=== PATIENT | male | born 1955 | race Caucasian/White ===

== ENCOUNTER 2016-05-22 18:57 | Observation (INO) | payer OTHER ==
[2016-05-22 19:03] VITALS: BMI 30.2
[2016-05-22] MEDS ORDERED: ACETAMINOPHEN 325 MG TABLET (FP) PO PRN (19:35)
[2016-05-22] MEDS ORDERED: ATORVASTATIN CA 10 MG TABLET (FP) PO ONE (19:35)
--- NOTE | 2016-05-22 19:47 | HP ---
Admitting History and Physical - Primary Care Physician PCP: Clyde Valencia - Admission Chief Complaint: WEAKNESS AND FATIGUE History of Present Illness: 60 WHITE MALE WITH H/O 1-2 MONTHS OF FATIGUE WITH 2-3 WEEKS OF SOB ON EXERTION. HE NOTES THAT SOB HAS OCCURRED WITH MODERATE EXERTION. PATIENT HAS NOTED MELANOTIC STOOL A NUMBER OF WEEKS AGO WHICH CLEARED. HE IS A [employer] AND WORKS A [employer]. HE HAS BEEN OTHERWISE HEALTHY. 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 No: AFIB Pulmonary: No: Asthma Gastrointestinal: No: Ascites Hepatobiliary: No: Cirrhosis Renal/: Yes: Renal Inusuff, Renal Calculi Heme/Onc: No: Anemia Infectious Disease: No: AIDS Psych: No: Addictions Musculoskeletal: Yes: Bursitis (BILATERAL KNEES) Rheumatology: No: Gout Endocrine: No: Diabetes Mellitus Dermatology: No: Basal Cell, Cellulitis, Eczema, Melanoma, Psoriasis, Squamous Cell, Other - Past Surgical History Past Surgical History: Yes: None - Smoking History Smoking history: Never smoked Have you smoked in the past 12 months: No - Alcohol/Substance Use Hx Alcohol Use: Yes (WINE WITH MEALS OCCASSIONALLY) History of Substance Use: reports: None - Social History Usual Living Arrangement: Yes: With Spouse ADL: Independent History of Recent Travel: No Home Medications - Allergies Allergies/Adverse Reactions: Allergies Allergy/AdvReac Type Severity Reaction Status Date / Time No Known Allergies Allergy Verified 05/22/16 18:59 - Home Medications Home Medications: Ambulatory Orders Diltiazem HCl [Cardizem] 0 mg PO 01/30/13 Family Disease History - Family Disease History Family Disease History: Other: Father (CVA), Mother (ALZ DISEASE), Brother ( DIVERTICULITIS) Review of Systems - Review of Systems Constitutional: reports: Lethargy, Weakness. denies: Chills, Loss of Appetite Eyes: reports: No Symptoms. denies: Blind Spots HENT: reports: No Symptoms. denies: Difficult Swallowing Neck: reports: No Symptoms. denies: Decreased ROM Cardiovascular: reports: No Symptoms Respiratory: reports: Cough Gastrointestinal: reports: Melena Genitourinary: reports: No Symptoms Breasts: reports: No Symptoms Reported Musculoskeletal: reports: No Symptoms Integumentary: reports: No Symptoms Neurological: reports: No Symptoms Endocrine: reports: No Symptoms Hematology/Lymphatic: reports: No Symptoms Psychiatric: reports: No Symptoms Physical Examination Vital Signs: Vital Signs Temperature 98.2 F 05/22/16 19:00 Pulse Rate 81 05/22/16 19:00 Respiratory Rate 19 05/22/16 19:00 Blood Pressure 162/92 05/22/16 19:00 O2 Sat by Pulse Oximetry (%) 98 05/22/16 19:00 Constitutional: Yes: Calm Eyes: Yes: EOM Intact HENT: Yes: Normocephalic Neck: Yes: Trachea Midline Cardiovascular: Yes: S1, S2 Respiratory: Yes: CTA Bilaterally Gastrointestinal: Yes: Normal Bowel Sounds, Soft Renal/: Yes: WNL Breast(s): Yes: WNL Musculoskeletal: Yes: WNL Extremities: Yes: WNL Edema: No Integumentary: Yes: WNL Wound/Incision: Yes: Clean/Dry Neurological: Yes: WNL ...Motor Strength: WNL Psychiatric: Yes: WNL Labs: REVIEWED Imaging - Results Chest X-ray: Image Reviewed EKG: Image Reviewed Problem List - Problems (1) Anemia Code(s): D64.9 - ANEMIA, UNSPECIFIED (2) CRI (chronic renal insufficiency) Code(s): N18.9 - CHRONIC KIDNEY DISEASE, UNSPECIFIED (3) Hypertension Code(s): I10 - ESSENTIAL (PRIMARY) HYPERTENSION (4) Hyperlipidemia Code(s): E78.5 - HYPERLIPIDEMIA, UNSPECIFIED Assessment/Plan NEW ONSET OF LIKELY BLOOD LOSS ANEMIA (H/O MELANOTIC STOOL) HTN CRI HPL PLAN: TRANSFUSE 2 UNITS GI EVAL R/O UGI BLD CT ABD/PELVIS/CEA LEVEL IRON/TIBC/FERRITIN/SPEP/B12/FOLATE PENDING STOOL GUIAC WILL FOLLOW Bonifacio VALENCIA MD
--- NOTE | 2016-05-22 19:55 | PDOC ---
History of Present Illness - General Chief Complaint: Blood Transfusion Stated Complaint: PCP SENT/BLOOD TRANSFUSION Time Seen by Provider: 05/22/16 19:54 Past History - Past Medical History Allergies/Adverse Reactions: Allergies Allergy/AdvReac Type Severity Reaction Status Date / Time No Known Allergies Allergy Verified 05/22/16 18:59 Home Medications: Ambulatory Orders Diltiazem HCl [Cardizem] 0 mg PO 01/30/13 HTN: Yes - Psycho/Social/Smoking Cessation Hx Suicidal Ideation: No Smoking History: Never smoked Have you smoked in the past 12 months: No Information on smoking cessation initiated: No Hx Alcohol Use: Yes (WINE WITH MEALS OCCASSIONALLY) Drug/Substance Use Hx: No *Physical Exam - Vital Signs Last Vital Signs Temp Pulse Resp BP Pulse Ox 98.2 F 81 19 162/92 98 05/22/16 19:00 05/22/16 19:00 05/22/16 19:00 05/22/16 19:00 05/22/16 19:00 Medical Decision Making - Medical Decision Making 05/22/16 19:55 Vital Signs Temp Pulse Resp BP Pulse Ox 98.2 F 81 19 162/92 98 05/22/16 19:00 05/22/16 19:00 05/22/16 19:00 05/22/16 19:00 05/22/16 19:00 60-year-old male with history of hypertension, hyperlipidemia, chronic renal sufficiency sent in for direct admission for anemia. Patient was seen and examined by Dr. Loza and sent in for admission. The patient was a direct admission and accidentally went through the ED to register. The patient was already on 7W. Case was discussed Dr. Loza. Given that this was direct admission and pt accidentally registered thru ED, patient needs admission order. Admission order placed in. Dr. Loza aware. *DC/Admit/Observation/Transfer Diagnosis at time of Disposition: Anemia - Discharge Dispostion Condition at time of disposition: Stable Admit: Yes - Referrals Referrals: Clyde Loza MD [Primary Care Provider] -
[2016-05-22] MEDS ORDERED: amLODIPine BESYLATE 2.5 MG TABLET (FP) PO ONE (20:36)
[2016-05-22] MEDS ORDERED: diphenhydrAMINE HCL 25 MG CAPSULE (FP) PO PRN (20:39)
[2016-05-22] MEDS ORDERED: FUROSEMIDE 40 MG/4 ML INJECTABLE VIAL IVPUSH ONE (20:45)
[2016-05-22] MEDS: ATORVASTATIN CA 10 MG TABLET (FP) PO SCH (21:01)
[2016-05-22] MEDS: hydrALAZINE HCL 50 MG TABLET (FP) PO SCH (21:04)
[2016-05-22] MEDS: PANTOPRAZOLE SODIUM 100 ML IVPB SCH (21:04)
[2016-05-23] MEDS: PANTOPRAZOLE SODIUM 100 ML IVPB SCH (09:32)
[2016-05-23] MEDS: hydrALAZINE HCL 50 MG TABLET (FP) PO SCH ×2 (09:32→21:01)
[2016-05-23 09:47] LABS: BASOPHIL 0.7 % (0-2.0); EOSINOPHIL 3.7 % (0-4.5); MCH 27.3 pg (25.7-33.7); MCHC 32.9 g/dl (32.0-35.9); MEAN CELL VOLUME 82.9 fl (80-96); MEAN PLT VOLUME 6.2 fl (7.5-11.1); NEUTROPHILS 67.7 % (42.8-82.8); PLATELET COUNT 235 K/MM3 (134-434); WHITE BLOOD COUNT 5.4 K/mm3 (4.0-10.0)
--- NOTE | 2016-05-23 09:59 | CON.GI ---
Consult Consult Specialty:: GI: Dr. Sellers covering for Dr. Chester Referred by:: Dr. Clyde Loza Reason for Consultation:: Anemia - History of Present Illness Chief Complaint: "I had dark bowel movements a few weeks ago" History of Present Illness: 60M admitted for evaluation of anemia. Hgb was 7.2 and he was transfused 2 units PRBC. The only change in his usual state of health was that he had dark bowel movements about for a bout 4-5 days a couple of weeks ago. Otherwise he denies nausea, vomiting, abdominal pain, early satiety, unintentional weight loss. He follows with Dr. Jimmie Chester and tells me that he has a history of colon polyps, for which he has colonoscopies "every couple of years". he also believes that he had an upper endoscopy in the past that was "OK". There is no family history of colorectal cancer or other GI malignancy. Labs performed also revealed an iron deficiency component. He denies NSAID use. 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 No: AFIB Pulmonary: No: Asthma Gastrointestinal: No: Ascites Hepatobiliary: No: Cirrhosis Renal/: Yes: Renal Inusuff, Renal Calculi Infectious Disease: No: AIDS Psych: No: Addictions Musculoskeletal: Yes: Bursitis (BILATERAL KNEES) Rheumatology: No: Gout Endocrine: No: Diabetes Mellitus Dermatology: No: Basal Cell, Cellulitis, Eczema, Melanoma, Psoriasis, Squamous Cell, Other - Past Surgical History Past Surgical History: Yes: None - Alcohol/Substance Use Hx Alcohol Use: Yes (WINE WITH MEALS OCCASSIONALLY) History of Substance Use: reports: None - Smoking History Smoking history: Never smoked Have you smoked in the past 12 months: No - Social History ADL: Independent History of Recent Travel: No Home Medications - Allergies Allergies/Adverse Reactions: Allergies Allergy/AdvReac Type Severity Reaction Status Date / Time No Known Allergies Allergy Verified 05/22/16 18:59 - Home Medications Home Medications: Ambulatory Orders Diltiazem HCl [Cardizem] 0 mg PO 01/30/13 Family Disease History - Family Disease History Family Disease History: Other: Father ( age 68: [place]), Mother (Alive: ALZ DISEASE), Brother (1 brother: DIVERTICULITIS), Sister (1 sister: healthy) Other Family History: No family history of colorectal cancer or other GI malignancy Review of Systems - Review of Systems Constitutional: denies: Lethargy, Unintentional Wgt. Loss Cardiovascular: denies: Chest Pain, Shortness of Breath Gastrointestinal: reports: Melena, Rectal Bleeding (noted some blood on the toilet paper after a bowel movement a couple of weeks ago). denies: Abdominal Pain, Bloating, Constipation, Diarrhea, Dysphagia Physical Exam-GI Vital Signs: Vital Signs Temperature 98.7 F 05/22/16 22:00 Pulse Rate 76 05/22/16 22:00 Respiratory Rate 18 05/22/16 22:00 Blood Pressure 138/74 05/22/16 22:00 O2 Sat by Pulse Oximetry (%) 99 05/22/16 21:00 Constitutional: Yes: Calm Eyes: No: Sclera Icterus Cardiovascular: Yes: Regular Rate and Rhythm. No: Murmur Respiratory: Yes: CTA Bilaterally Gastrointestinal Inspection: No: Distention, Scars ...Auscultate: Yes: Normoactive Bowel Sounds ...Palpate: No: Hepatomegaly, Splenomegaly, Tenderness ...Percussion: No: Tympanitic ...Rectal Exam: Yes: Guaiac Negative (light brown stool) Edema: No Neurological: Yes: Alert, Oriented Labs: CBC, BMP 05/23/16 09:00 Laboratory Tests 05/22/16 05/22/16 12:50 12:50 Sodium 141 Potassium 4.2 Chloride 107 Carbon Dioxide 27 Anion Gap 7 L BUN 27 H Creatinine 2.5 H D Random Glucose 84 Iron 19 L TIBC 478 H Iron Saturation 4 L Total Bilirubin 0.3 D AST 15 D ALT 23 D Alkaline Phosphatase 96 Problem List - Problems (1) Anemia Assessment/Plan: Compomemt of iron deficiency also with a questionable recent history of melena guaiac negative on exam today and hemodynamically stable I explained to Mr. Wood that he will need both upper endoscopy and colonoscopy to evaluate for GI source of blood loss including PUD/Bleeding blood vessels / tumors of the intestinal tract such as colon cancer. We discussed potential risks of the procedure like but not limited to bleeding, perforation requiring surgery to repair, infection, sedation medication effects all of which could be potentially life threatening. He has agreed to the procedure Dr. Chester resumes coverage 05/25/16 Code(s): D64.9 - ANEMIA, UNSPECIFIED
[2016-05-23 10:17] LABS: ALBUMIN 3.2 g/dl (3.4-5.0); BILIRUBIN,TOTAL 1.1 mg/dL (0.2-1.0); CALCIUM 8.1 mg/dL (8.5-10.1); COCKROFT - GAULT 47.98; CREATININE 2.1 mg/dL (0.7-1.3)
[2016-05-23 10:18] LABS: INR 1.04 (0.82-1.09); PROTHROMBIN TIME (PATIENT) 11.4 SEC (9.98-11.88)
--- NOTE | 2016-05-23 11:51 | PN ---
Progress Note (short form) - Note Progress Note: PULMONARY/MED No bowel movements overnight. No shortness of breath or chest pain. No abdominal pain. Last Vital Signs Temp Pulse Resp BP Pulse Ox 98.6 F 80 22 165/94 99 05/23/16 09:00 05/23/16 09:00 05/23/16 09:00 05/23/16 09:00 05/23/16 09:00 Gen: NAD at rest Heart: RRR Lung: decreased breath sounds at the bases Abd: soft, nontender Ext: no edema CBC, BMP 05/23/16 09:00 05/23/16 09:00 Active Medications Acetaminophen (Tylenol -) 650 mg PO ONCE PRN PRN Reason: BACK PAIN Atorvastatin Calcium (Lipitor -) 10 mg PO HS [facility] Last Admin: 05/22/16 21:01 Dose: 10 mg Bisacodyl (Dulcolax -) 20 mg PO ONCE ONE Stop: 05/24/16 13:01 Diltiazem HCl (Cardizem Cd -) 240 mg PO DAILY [facility] Last Admin: 05/23/16 09:32 Dose: 240 mg Diphenhydramine HCl (Benadryl -) 25 mg PO HS PRN PRN Reason: INSOMNIA Hydralazine HCl (Apresoline -) 50 mg PO BID [facility] Last Admin: 05/23/16 09:32 Dose: 50 mg Pantoprazole Sodium (Protonix 40mg Ivpb (Pre-Docked)) 100 mls @ 200 mls/hr IVPB DAILY [facility] Last Admin: 05/23/16 09:32 Dose: 200 mls/hr A/P r/o GI Bleed Anemia HTN Hyperlipidemia CKD - protoinx - monitor H/H - transfuse as needed - GI eval appreciated - for endoscopy/colonoscopy 05/25 - DVT prophylaxis
--- NOTE | 2016-05-23 14:25 | PN ---
Progress Note (short form) - Note Progress Note: Dr. Chester cannot performed the procedures on wednesday. If H/H stable and no overt bleeding, OK to d/c home tomorrow. I spoke with Dr. Chester. he advised that Mr. Wood call the office to arrange EGD/Coonoscopy. Can D/C on Protonix 40mg once daily in the interim Problem List - Problems (1) Anemia Code(s): D64.9 - ANEMIA, UNSPECIFIED
[2016-05-23] MEDS: ATORVASTATIN CA 10 MG TABLET (FP) PO SCH (21:01)
[2016-05-24 07:25] LABS: BASOPHIL 0.6 % (0-2.0); MEAN PLT VOLUME 6.3 fl (7.5-11.1); NEUTROPHILS 67.6 % (42.8-82.8); PLATELET COUNT 241 K/MM3 (134-434); RDW 16.6 % (11.9-15.9); WHITE BLOOD COUNT 6.5 K/mm3 (4.0-10.0)
[2016-05-24 07:44] LABS: COCKROFT - GAULT 47.12; CREATININE 2.1 mg/dL (0.7-1.3); MAGNESIUM 2.5 mg/dL (1.8-2.4); PHOSPHOROUS 3.2 mg/dL (2.5-4.9)
--- NOTE | 2016-05-24 10:05 | PN ---
Progress Note (short form) - Note Progress Note: Dr. Chester able to perform procedures tomorrow. Clear liquid, bowel prep for EGD/Colon tomorrow Problem List - Problems (1) Anemia Code(s): D64.9 - ANEMIA, UNSPECIFIED
[2016-05-24] MEDS: hydrALAZINE HCL 50 MG TABLET (FP) PO SCH ×2 (10:29→21:55)
[2016-05-24] MEDS: PANTOPRAZOLE SODIUM 100 ML IVPB SCH (10:32)
--- NOTE | 2016-05-24 11:29 | PN ---
Progress Note (short form) - Note Progress Note: PULMONARY/MED No bowel movements overnight. No shortness of breath or chest pain. No abdominal pain. Last Vital Signs Temp Pulse Resp BP Pulse Ox 98.5 F 68 18 148/75 99 05/24/16 07:03 05/24/16 07:03 05/24/16 07:03 05/24/16 07:03 05/23/16 21:00 Gen: NAD at rest Heart: RRR Lung: decreased breath sounds at the bases Abd: soft, nontender Ext: no edema CBC, BMP 05/24/16 06:25 05/24/16 06:25 Active Medications Acetaminophen (Tylenol -) 650 mg PO ONCE PRN PRN Reason: BACK PAIN Atorvastatin Calcium (Lipitor -) 10 mg PO HS [facility] Last Admin: 05/23/16 21:01 Dose: 10 mg Bisacodyl (Dulcolax -) 20 mg PO ONCE ONE Stop: 05/24/16 13:01 Diltiazem HCl (Cardizem Cd -) 240 mg PO DAILY [facility] Last Admin: 05/24/16 10:32 Dose: 240 mg Diphenhydramine HCl (Benadryl -) 25 mg PO HS PRN PRN Reason: INSOMNIA Last Admin: 05/24/16 00:18 Dose: 25 mg Hydralazine HCl (Apresoline -) 50 mg PO BID [facility] Last Admin: 05/24/16 10:29 Dose: 50 mg Pantoprazole Sodium (Protonix 40mg Ivpb (Pre-Docked)) 100 mls @ 200 mls/hr IVPB DAILY [facility] Last Admin: 05/24/16 10:32 Dose: 200 mls/hr A/P r/o GI Bleed Anemia HTN Hyperlipidemia CKD - continue protoinx - monitor H/H - clear liquids - bowel prep today - for endoscopy/colonoscopy 05/25 - DVT prophylaxis
[2016-05-24] MEDS ORDERED: BISACODYL 5 MG TABLET.DR (FP) PO ONE ×2 (13:00→13:45)
[2016-05-24] MEDS ORDERED: PEG3350/SOD SULF,BICARB,CL/KCL 4,000 ML SOLN.RECON PO ONE (15:00)
[2016-05-24] MEDS: ATORVASTATIN CA 10 MG TABLET (FP) PO SCH (21:55)
[2016-05-25 08:24] LABS: EOSINOPHIL 2.8 % (0-4.5); MCHC 32.7 g/dl (32.0-35.9); MEAN CELL VOLUME 82.5 fl (80-96); MEAN PLT VOLUME 6.5 fl (7.5-11.1); PLATELET COUNT 273 K/MM3 (134-434); RDW 17.5 % (11.9-15.9); WHITE BLOOD COUNT 6.2 K/mm3 (4.0-10.0)
[2016-05-25 08:33] LABS: INR 1.07 (0.82-1.09); PROTHROMBIN TIME (PATIENT) 11.8 SEC (9.98-11.88)
[2016-05-25 08:36] LABS: ACTIVATED PTT 30.8 SECONDS (26.9-34.4)
[2016-05-25 08:54] LABS: CALCIUM 8.6 mg/dL (8.5-10.1); COCKROFT - GAULT 43.95; CREATININE 2.2 mg/dL (0.7-1.3); MAGNESIUM 2.3 mg/dL (1.8-2.4); PHOSPHOROUS 2.7 mg/dL (2.5-4.9)
[2016-05-25] MEDS: PANTOPRAZOLE SODIUM 100 ML IVPB SCH (09:22)
[2016-05-25] MEDS: hydrALAZINE HCL 50 MG TABLET (FP) PO SCH (09:22)
[2016-05-25] MEDS ORDERED: PROPOFOL 20 ML ONE ×2 (11:07)
[2016-05-25 12:09] VITALS: TEMP 97.7
[2016-05-25 12:39] VITALS: BP 158/84; PULSE 71
--- NOTE | 2016-05-25 13:17 | DS ---
Physical Examination Vital Signs: Vital Signs Temperature 97.7 F 05/25/16 12:04 Pulse Rate 71 05/25/16 12:38 Respiratory Rate 18 05/25/16 12:38 Blood Pressure 158/84 05/25/16 12:38 O2 Sat by Pulse Oximetry (%) 100 05/25/16 12:38 Findings/Remarks: spoke with Dr Henrik montgomery d/c home r louise zarate Constitutional: Yes: Calm Eyes: Yes: EOM Intact HENT: Yes: Normocephalic Neck: Yes: Trachea Midline Cardiovascular: Yes: Regular Rate and Rhythm, Murmur Respiratory: Yes: CTA Bilaterally Gastrointestinal: Yes: Soft ...Rectal Exam: Yes: Deferred Renal/: Yes: WNL Breast(s): Yes: WNL Musculoskeletal: Yes: WNL Extremities: Yes: WNL Edema: No Integumentary: Yes: WNL Neurological: Yes: WNL Labs: CBC, BMP 05/25/16 06:00 05/25/16 06:00 reviewed Discharge Summary Reason For Visit: ANEMIA Current Active Problems Anemia (Acute) CRI (chronic renal insufficiency) (Acute) Hyperlipidemia (Acute) Hypertension (Acute) Condition: Stable - Instructions Referrals: Clyde Loza MD [Primary Care Provider] - - Home Medications Comprehensive Discharge Medication List: Ambulatory Orders Diltiazem HCl [Cardizem] 0 mg PO 01/30/13
[2016-05-26 00:06] LABS: A/G RATIO 1.2 (0.7-1.7); ALBUMIN 3.3 g/dL (2.9-4.4); GLOBULIN, TOTAL 2.8 g/dL (2.2-3.9); M-SPIKE Not Observed g/dL (Not Observed); TOTAL PROTEIN 6.1 g/dL (6.0-8.5)
[2016-05-26 06:06] LABS: HEMATOCRIT 21.6 % (37.5-51.0)
--- NOTE | 2016-05-26 13:08 | PATH ---
Surgical Pathology Report Patient Name: SUKHDEV JALLOH [facility]. Rec. #: [id number] /Age/Gender: 1955 (Age: 60) / M Account: [id number] Location: [facility] MED/SURG Taken: 05/25/2016 Received: 05/25/2016 Reported: 05/26/2016 Physicians: Jimmie Chester M.D. Specimen(s) Received A: BX DUODENUM B: BX ANTRUM ULCER C: BX GASTRIC BODY D: BX GASTRIC CARDIA NODULE E: BX DESCENDING COLON POLYP F: POLYP SIGMOID Clinical History Iron deficiency anemia Vocal cord polyp, duodenal bulb mucosa, antral ulcer, gastritis, nodule gastric cardia, diverticulosis, descending and sigmoid polyp Final Diagnosis A. DUODENAL BULB, BIOPSY: DUODENAL AND GASTRIC OXYNTIC MUCOSA WITH CHRONIC INFLAMMATION MOST CONSISTENT WITH GASTRIC HETEROTOPIA. B. STOMACH, ANTRUM, ULCER, BIOPSY: GASTRIC ANTRAL MUCOSA WITH MODERATE CHRONIC GASTRITIS AND REACTIVE GASTROPATHY WITH FOCAL SURFACE ULCERATION. IMMUNOSTAIN FOR H. PYLORI IS NEGATIVE FOR ORGANISMS. C. STOMACH, BODY, BIOPSY: GASTRIC OXYNTIC MUCOSA WITH MILD TO MODERATE CHRONIC GASTRITIS. IMMUNOSTAIN FOR H. PYLORI IS NEGATIVE FOR ORGANISMS. D. STOMACH, CARDIA, NODULE, BIOPSY: GASTRIC CARDIA-TYPE MUCOSA WITH FOCAL ACTIVE AND CHRONIC INFLAMMATION, HYPERPLASTIC CHANGE AND FOCAL INTESTINAL METAPLASIA (SEE COMMENT). NEGATIVE FOR DYSPLASIA. NO SQUAMOUS EPITHELIUM PRESENT. Comment: The finding of intestinal metaplasia in cardia mucosa is not by itself diagnostic of Mancini's esophagus. Endoscopic correlations and follow up are suggested. E. COLON, DESCENDING, POLYP, BIOPSY: HYPERPLASTIC POLYP. F. COLON, SIGMOID, POLYP, POLYPECTOMY: FRAGMENTS OF SERRATED ADENOMA. Electronically Signed Clinton Andrews M.D. Gross Description A. Received in formalin, labeled "biopsy duodenal bulb" is a marks, irregular portion of soft tissue measuring 0.3 cm in greatest dimension. The specimen is submitted in toto in one cassette. B. Received in formalin, labeled "biopsy antral ulcer" are 2 marks, irregular portions of soft tissue measuring 0.1 and 0.4 cm in greatest dimension. The specimens are submitted in toto in one cassette. C. Received in formalin, labeled "biopsy gastric body" are 2 marks, irregular portions of soft tissue measuring 0.2 and 0.5 cm in greatest dimension. The specimens are submitted in toto in one cassette. D. Received in formalin, labeled "biopsy gastric cardia nodule" is a marks, irregular portion of soft tissue measuring 0.3 cm in greatest dimension. The specimen is submitted in toto in one cassette. E. Received in formalin, labeled "biopsy descending colon polyp" is a marks, irregular portion of soft tissue measuring 0.3 cm in greatest dimension. The specimen is submitted in toto in one cassette. F. Received in formalin, labeled "polyp sigmoid" are 2 marks, irregular portions of soft tissue averaging 0.4 cm in greatest dimension. The specimens are submitted in toto in one cassette. 05/25/2016 [facility]05/25/2016
== END 2016-05-25 14:11 | disposition home or self-care (01) ==
LOC: JER 18:57 → J7W 19:55
PROVIDERS: ADMIT Specialist; ATTEND Specialist
PROC: 0DBM8ZX Excision of Descending Colon, Via Natural or Artificial Opening Endoscopic, Diagnostic (ICD-10-PCS; principal; 2016-05-22)
PROC: 0DBN8ZX Excision of Sigmoid Colon, Via Natural or Artificial Opening Endoscopic, Diagnostic (ICD-10-PCS; 2016-05-22)
PROC: 0DB98ZX Excision of Duodenum, Via Natural or Artificial Opening Endoscopic, Diagnostic (ICD-10-PCS; 2016-05-22)
PROC: 0DB68ZX Excision of Stomach, Via Natural or Artificial Opening Endoscopic, Diagnostic (ICD-10-PCS; 2016-05-22)
PROC: 3E033GC Introduction of Other Therapeutic Substance into Peripheral Vein, Percutaneous Approach (ICD-10-PCS; 2016-05-22)
PROC: 30233N1 Transfusion of Nonautologous Red Blood Cells into Peripheral Vein, Percutaneous Approach (ICD-10-PCS; 2016-05-25)
DX: D50.9 Iron deficiency anemia, unspecified (principal); I12.9 Hypertensive chronic kidney disease with stage 1 through stage 4 chronic kidney disease, or unspecified chronic kidney disease; N18.9 Chronic kidney disease, unspecified; E78.5 Hyperlipidemia, unspecified; K25.9 Gastric ulcer, unspecified as acute or chronic, without hemorrhage or perforation; Z86.010 Personal history of colon polyps; K57.30 Diverticulosis of large intestine without perforation or abscess without bleeding; K64.8 Other hemorrhoids; D12.4 Benign neoplasm of descending colon; D12.5 Benign neoplasm of sigmoid colon; K31.89 Other diseases of stomach and duodenum
CPT/HCPCS: 36415; 36430; 71020-TC; 80048; 80053; 80061; 81003; 81015; 82306; 82378; 82570; 82747; 83036; 83540; 83550; 83721; 83735; 83970; 84100; 84153; 84155; 84156; 84165; 84443; 84550; 85014; 85025; 85027; 85610; 85730; 86850; 86900; 86901; 86922; 88305-TC; 88342-TC; 93005; 93010; 99281-25; G0378; P9038; P9058